=== PATIENT | female | born 1980 | race Caucasian/White ===

== ENCOUNTER 2016-09-30 19:50 | Emergency (ER) | payer BC, OTHER ==
[2016-09-30] MEDS ORDERED: HYOSCYAMINE SULFATE ODT 0.125 MG TAB.SUBL SL ONE (20:04)
[2016-09-30] MEDS ORDERED: ONDANSETRON HCL IV 4 MG/2 ML VIAL IVP ONE ×2 (20:04→22:05)
--- NOTE | 2016-09-30 20:09 | Emergency Department Record ---
History of Present Illness - General Chief complaint: Vomiting Stated complaint: VOMITING Time Seen by Provider: 09/30/16 20:04 Source: Patient Mode of Arrival: Ambulatory Limitations: No limitations - History of Present Illness Initial comments: 36 yo female presents to ED with a CC of nausea, vomiting, and loose stools that began approximately 4 hours ago. Patient denies health problems other than asthma, denies fevers, chills, or recent ill contacts. Patient does report abdominal pain to the epigastric region. MD complaint: Abdominal pain, Diarrhea, Nausea, Vomiting Onset/Timin -: Hour(s) Description of Vomiting: Bilious, Food contents Description of Diarrhea: Water Associated Abdominal Pain: Yes Location: Epigastric Severity: Mild Severity scale (1-10): 4 Quality: Aching, Sharp Consistency: Intermittent Improves with: None Worsens with: Vomiting Associated Symptoms: Denies other symptoms - Related Data Home Medications Medication Instructions Recorded Confirmed Last Taken Albuterol Sulfate [Proair Hfa] 1 puff INH Q4HR 11/02/14 09/30/16 09/30/16 Escitalopram Oxalate [Lexapro] 10 mg PO DAILY 11/02/14 09/30/16 09/30/16 Budesonide/Formoterol Fumarate 10.2 gm IH ASDIR 04/21/15 09/30/16 09/30/16 [Symbicort 160-4.5 Mcg Inhaler] Hydrocodone/Acetaminophen [[place] 0.5 each PO ASDIR tab 05/07/16 09/30/16 5mg/325mg] Previous Rx's Medication Instructions Recorded Albuterol Sulfate 0.083% [Neb] 3 ml NEB .EVERY 4-6 HOURS PRN #60 03/19/16 ml Levalbuterol HCl (1.25MG/3Ml) 1.25 mg IH Q8H #60 neb 03/19/16 [Xopenex (1.25MG/3Ml)] Hyoscyamine Sulfate [Levsin-Sl] 0.25 mg SL Q8H PRN #15 tab.subl 09/30/16 Ondansetron [Zofran Odt] 4 mg PO Q4H PRN #20 tab.rapdis 09/30/16 Allergies Allergy/AdvReac Type Severity Reaction Status Date / Time Penicillins Allergy Unknown PT UNSURE Verified 09/30/16 19:53 OF REACTION doxycycline AdvReac Intermediate VOMITING Verified 09/30/16 19:53 Travel Screening - Travel/Exposure Within Last 30 Days Have you traveled within the last 30 days?: No - Travel/Exposure Within Last Year Have you traveled outside the [place] in the last year?: No - Additonal Travel Details Have you been exposed to anyone with a communicable illness?: No - Travel Symptoms Symptom Screening: None Review of Systems Constitutional: Denies: Chills, Fever, Malaise, Night sweats Eyes: Denies: Eye discharge, Eye pain ENT: Denies: Congestion, Ear pain, Epistaxis Respiratory: Denies: Cough, Dyspnea Cardiovascular: Denies: Chest pain, Dyspnea on exertion, Palpitations, Paroxysmal nocturnal dyspnea Endocrine: Denies: Fatigue, Heat or cold intolerance Gastrointestinal: Reports: Abdominal pain, Diarrhea, Nausea, Vomiting Genitourinary: Denies: Dysuria, Frequency, Hematuria, Incontinence Musculoskeletal: Denies: Arthralgia, Back pain, Gout, Joint swelling Skin: Denies: Bruising, Change in color, Change in hair/nails Neurological: Denies: Abnormal gait, Confusion, Headache, Seizure Psychiatric: Denies: Anxiety Hematological/Lymphatic: Denies: Anemia, Blood Clots Past Medical History - SOCIAL HISTORY Smoking Status: Heavy tobacco smoker (>10/day) Alcohol Use: None Drug Use: None - RESPIRATORY Hx Respiratory Disorders: Yes Hx Asthma: Yes (in ER alot for asthma last visit 05-07) Hx Bronchitis: Yes Hx COPD: Yes Hx Dyspnea: Yes Hx Pneumonia: Yes - CARDIOVASCULAR Hx Cardio Disorders: No - NEURO Hx Neuro Disorders: Yes Hx Headaches: Yes - GI Hx GI Disorders: Yes Hx Abdominal Pain: Yes Hx Nausea/Vomiting: Yes Comment:: diarrhea - Hx Genitourinary Disorders: No - ENDOCRINE Hx Endocrine Disorders: No Hx Diabetes: No Hx Thyroid Disease: Yes (hashimottos) - MUSCULOSKELETAL Hx Musculoskeletal Disorders: Yes - PSYCH Hx Psych Problems: Yes Hx Anxiety: Yes Hx Depression: Yes - HEMATOLOGY/ONCOLOGY Hx Hematology/Oncology Disorders: No Family Medical History Any Significant Family History?: No Hx Cancer: Mother Hx Heart Disease: Father Hx HTN: Father Physical Exam - General General Appearance: Alert, Oriented x3, Cooperative, Moderate distress Limitations: No limitations - Head Head exam: Atraumatic, Normocephalic, Normal inspection Head exam detail: negative: Abrasion, Contusion, Vasquez's sign, General tenderness, Hematoma, Laceration - Eye Eye exam: Normal appearance. negative: Conjunctival injection, Periorbital swelling, Periorbital tenderness, Scleral icterus - ENT Ear exam: negative: Auricular hematoma, Auricular trauma Nasal Exam: negative: Active bleeding, Discharge, Dried blood, Foreign body Mouth exam: negative: Drooling, Laceration, Muffled voice, Tongue elevation - Neck Neck exam: Normal inspection. negative: Meningismus, Tenderness - Respiratory Respiratory exam: Normal lung sounds bilaterally. negative: Rales, Respiratory distress, Rhonchi, Stridor, Wheezes - Cardiovascular Cardiovascular Exam: Normal rhythm, Normal heart sounds, Tachycardia - GI/Abdominal GI/Abdominal exam: Soft, Tenderness, Other (mild, diffuse TTP on examination, greastest at the epigastric region on examination, no rebound, guarding, or peritoneal signs on exam.). negative: Rebound, Rigid - Rectal Rectal exam: Deferred - exam: Deferred - Extremities Extremities exam: Normal inspection. negative: Calf tenderness, Pedal edema, Tenderness - Back Back exam: Denies: CVA tenderness (R), CVA tenderness (L) - Neurological Neurological exam: Alert, Normal gait, Oriented X3 - Psychiatric Psychiatric exam: Normal affect, Normal mood - Skin Skin exam: Normal color. negative: Abrasion Type of lesion: negative: abrasion Course Vital Signs 09/30/16 19:53 Temperature 98.4 F Pulse Rate 127 H Respiratory 20 Rate Blood Pressure 114/72 Pulse Ox 98 - Reevaluation(s) Reevaluation #1: 09/30/16 20:59 Labs reviewed, WBC 17.9, left shift 86% neutrophils. Labs are otherwise grossly unremarkable for an acute process. Reevaluation #2: 09/30/16 21:26 UA reviewed and appears negative for infection. 2nd liter is infusing. Reevaluation #3: 09/30/16 22:03 Patient reassessed, repeat abdominal examination is benign, no pain with palpation, no rebound and no peritoneal signs. CT imaging is not felt to be warranted at this time given her abdominal examination, likely secondary to her repeated episodes of vomiting. Patient was updated on all results, and reports that she is feeling much better. Patient appears stable for discharge at this time. Medical Decision Making - Lab Data Result diagrams: 09/30/16 20:12 09/30/16 20:12 Disposition Disposition: Discharge Clinical Impression: Nausea & vomiting Qualifiers: Vomiting type: unspecified Vomiting Intractability: non-intractable Qualified Code(s): R11.2 - Nausea with vomiting, unspecified Disposition: Home, Self-Care Condition: (2) Stable Instructions: Acute Nausea and Vomiting (ED) Additional Instructions: Return to ED if your symptoms worsen or if you have any concerns. Follow-up with your family doctor in 3-5 days. Zofran and Levsin as directed. Prescriptions: Hyoscyamine Sulfate [Levsin-Sl] 0.25 mg SL Q8H PRN #15 tab.subl PRN Reason: Abdominal Pain Ondansetron [Zofran Odt] 4 mg PO Q4H PRN #20 tab.rapdis PRN Reason: Nausea/Vomiting Forms: Patient Portal Access Time of Disposition: 22:06
[2016-09-30] MEDS ORDERED: 0.9 % SODIUM CHLORIDE 1000ML 1,000 ML IV SCH ×2 (20:15→21:15)
[2016-09-30 20:19] LABS: HEMATOCRIT 42.3 % (35.0-47.0); HEMOGLOBIN 14.4 gm/dl (11.6-16.0); MEAN CELL VOLUME 93.6 fl (81-97); MEAN CORPUSCULAR HEMOGLOBIN 31.9 pg (27-33); MEAN PLATELET VOLUME 10.5 fl (7.4-10.4); PLATELET COUNT 371 K/uL (130-400); RED BLOOD COUNT 4.52 M/uL (3.80-5.40); RED CELL DISTRIBUTION WIDTH 13.4 % (11.5-14.5); WHITE BLOOD COUNT W/O DIFF 17.9 K/uL (4.2-12.2)
[2016-09-30 20:24] LABS: PLATELET ESTIMATE NORMAL (NORMAL)
[2016-09-30 20:28] LABS: ALB/GLOB RATIO 1.4 (1.1-1.8); ALBUMIN 4.7 gm/dL (3.5-5.0); ALKALINE PHOSPHATASE 94 U/L (38-126); ALT/SGPT 36 U/L (9-52); ANION GAP 15.8 (7-16); AST/SGOT 24 U/L (14-36); BILIRUBIN,TOTAL 0.76 mg/dL (0.2-1.3); BLOOD UREA NITROGEN 15 mg/dL (7-17); CARBON DIOXIDE 22.2 mmol/L (22-30); CREATININE 0.7 mg/dL (0.52-1.04); EST GLOMERULAR FILTRATION RATE > 60 ml/min; GLUCOSE,RANDOM 132 mg/dL (70-110); TOTAL PROTEIN 8.1 gm/dL (6.3-8.2)
[2016-09-30 21:21] LABS: URINE APPEARANCE CLEAR; URINE BILIRUBIN SMALL (NEGATIVE); URINE BLOOD NEGATIVE (NEGATIVE); URINE COLOR YELLOW; URINE GLUCOSE (UA) NEGATIVE (NEGATIVE); URINE KETONE 15 mg/dL (NEGATIVE); URINE LEUKOCYTE ESTERASE NEGATIVE (NEGATIVE); URINE NITRITE NEGATIVE (NEGATIVE); URINE PROTEIN NEGATIVE (NEGATIVE); URINE UROBILINOGEN 0.2 E.U./dL (0.20 - 1.00)
[2016-09-30 21:24] LABS: HCG,QUALITATIVE URINE NEGATIVE (NEGATIVE)
== END 2016-09-30 22:24 | disposition home or self-care (01) ==
LOC: ER 19:50
DX: R11.2 Nausea with vomiting, unspecified (principal); R19.7 Diarrhea, unspecified; R10.13 Epigastric pain
CPT/HCPCS: 99284 ×2; 96376; 96374; 96361; 83690; 80053; 81003; 81025; 85027; J1980; J2405; J7030

== ENCOUNTER 2019-06-17 09:53 | Emergency (ER) | payer OTHER ==
[2019-06-17] MEDS ORDERED: IBUPROFEN 600 MG TABLET PO ONE (10:13)
--- NOTE | 2019-06-17 10:14 | Emergency Department Record ---
History of Present Illness - General Chief complaint: Flu Like Symptoms Stated complaint: FLU SYMPTOMS Time Seen by Provider: 06/17/19 10:00 Source: Patient Mode of Arrival: Ambulatory - History of Present Illness Initial comments: patient has sore throat and body aches and one loose stool and PMH of asthma and her 10 year old daughter diagnosed with flu couple days ago. Patient denies vomiting and she didn't get the flu shot this year Onset/Timin -: Days(s) Location: Generalized Severity scale (1-10): 6 Quality: Aching Consistency: Constant Improves with: None Worsens with: None Associated Symptoms: Headaches, Other - Related Data Home Medications Medication Instructions Recorded Confirmed Last Taken Tramadol HCl 50 mg PO DAILY 06/17/19 06/17/19 Unknown Previous Rx's Medication Instructions Recorded Albuterol Sulfate 0.083% [Neb] 3 ml NEB .EVERY 4-6 HOURS PRN #60 03/19/16 [Albuterol Sulfate] ml Oseltamivir Phosphate [Tamiflu] 75 mg PO BID #10 capsule 06/17/19 Allergies Allergy/AdvReac Type Severity Reaction Status Date / Time Penicillins Allergy Unknown PT UNSURE Verified 09/30/16 19:53 OF REACTION doxycycline AdvReac Intermediate VOMITING Verified 09/30/16 19:53 Travel Screening - Travel/Exposure Within Last 30 Days Have you traveled within the last 30 days?: No Past Medical History - SOCIAL HISTORY Smoking Status: Heavy tobacco smoker (>10/day) - RESPIRATORY Hx Respiratory Disorders: Yes Hx Asthma: Yes (in ER alot for asthma last visit 05-07) Hx Bronchitis: Yes Hx COPD: Yes Hx Dyspnea: Yes Hx Pneumonia: Yes - CARDIOVASCULAR Hx Cardio Disorders: No - NEURO Hx Neuro Disorders: Yes Hx Headaches: Yes - GI Hx GI Disorders: Yes Hx Abdominal Pain: Yes Hx Nausea/Vomiting: Yes Comment:: diarrhea - Hx Genitourinary Disorders: No - ENDOCRINE Hx Endocrine Disorders: No Hx Diabetes: No Hx Thyroid Disease: Yes (hashimottos) - MUSCULOSKELETAL Hx Musculoskeletal Disorders: Yes - PSYCH Hx Psych Problems: Yes Hx Anxiety: Yes Hx Depression: Yes - HEMATOLOGY/ONCOLOGY Hx Hematology/Oncology Disorders: No Family Medical History Any Significant Family History?: Yes Hx Cancer: Mother Hx Heart Disease: Father Hx HTN: Father Physical Exam - General General Appearance: Alert, Oriented x3, Cooperative, No acute distress - Head Head exam: Normal inspection - Eye Eye exam: Normal appearance, PERRL Pupils: Normal accommodation - ENT ENT exam: Normal exam, Mucous membranes moist, Normal external ear exam, Normal orophraynx, TM's normal bilaterally Ear exam: Normal external inspection. negative: External canal tenderness Nasal Exam: Normal inspection. negative: Discharge, Sinus tenderness Mouth exam: Normal external inspection, Tongue normal Teeth exam: Normal inspection. negative: Dental caries Throat exam: Normal inspection. negative: Tonsillar erythema, Tonsillar exudate - Neck Neck exam: Normal inspection, Full ROM. negative: Tenderness - Respiratory Respiratory exam: Normal lung sounds bilaterally. negative: Respiratory distress - Cardiovascular Cardiovascular Exam: Regular rate, Normal rhythm, Normal heart sounds - GI/Abdominal GI/Abdominal exam: Soft, Normal bowel sounds. negative: Tenderness - Rectal Rectal exam: Deferred - exam: Deferred - Extremities Extremities exam: Normal inspection, Full ROM, Normal capillary refill. negative: Tenderness - Back Back exam: Reports: Normal inspection, Full ROM. Denies: Muscle spasm, Rash noted, Tenderness - Neurological Neurological exam: Alert, Normal gait, Oriented X3, Reflexes normal - Psychiatric Psychiatric exam: Normal affect, Normal mood - Skin Skin exam: Dry, Intact, Normal color, Warm Course Vital Signs 06/17/19 10:01 Temperature 99.1 F Pulse Rate 94 H Respiratory 20 Rate Blood Pressure 135/85 Pulse Ox 98 Medical Decision Making - Data Complexity MDM Data: Labs Ordered and/or Reviewed (strep negative and flu negative but symptoms are consisitent with the flu) Disposition Clinical Impression: Influenza Disposition: Home, Self-Care Condition: (1) Good Instructions: Influenza (ED) Additional Instructions: follow up with family Dr in 2-3 days Prescriptions: Oseltamivir Phosphate [Tamiflu] 75 mg PO BID #10 capsule Forms: Patient Portal Access Time of Disposition: 10:41 Quality - Quality Measures Quality Measures: N/A - Blood Pressure Screening Does Patient Have Any of the Following: No Blood Pressure Classification: Pre-Hypertensive BP Reading Systolic Measurement: 135 Diastolic Measurement: 85 Screening for High Blood Pressure: < Pre-Hypertensive BP, F/U Documented > [G8950] Pre-Hypertensive Follow-up Interventions: Referral to alternative/primary care provider.
[2019-06-17 10:17] LABS: STREP A SCREEN NEGATIVE (NEGATIVE)
[2019-06-17 10:33] LABS: INFLUENZA A NEGATIVE (NEGATIVE); INFLUENZA B NEGATIVE (NEGATIVE)
== END 2019-06-17 10:51 | disposition home or self-care (01) ==
LOC: ER 09:53
DX: J11.1 Influenza due to unidentified influenza virus with other respiratory manifestations (principal); F17.210 Nicotine dependence, cigarettes, uncomplicated
CPT/HCPCS: 87400; 87880; 99283

== ENCOUNTER 2019-07-04 12:43 | Emergency (ER) | payer OTHER ==
--- NOTE | 2019-07-04 14:09 | Emergency Department Record ---
History of Present Illness - General Chief Complaint: Ankle/Foot Injury Stated Complaint: lt big toe pain/gout Time Seen by Provider: 07/04/19 13:49 Mode of Arrival: Ambulatory - History of Present Illness Onset/Timin -: Days(s) Severity: Severe Severity scale (1-10): 10 Improves With: Nothing Worsens With: Movement, Weight bearing - Related Data Previous Rx's Medication Instructions Recorded Albuterol Sulfate 0.083% [Neb] 3 ml NEB .EVERY 4-6 HOURS PRN #60 03/19/16 [Albuterol Sulfate] ml Allergies Allergy/AdvReac Type Severity Reaction Status Date / Time Penicillins Allergy Unknown PT UNSURE Verified 07/04/19 13:43 OF REACTION doxycycline AdvReac Intermediate VOMITING Verified 07/04/19 13:43 Travel Screening - Travel/Exposure Within Last 30 Days Have you traveled within the last 30 days?: No Past Medical History - SOCIAL HISTORY Smoking Status: Heavy tobacco smoker (>10/day) Alcohol Use: None Drug Use: None - RESPIRATORY Hx Respiratory Disorders: Yes Hx Asthma: Yes (in ER alot for asthma last visit 05-07) Hx Bronchitis: Yes Hx COPD: Yes Hx Dyspnea: Yes Hx Pneumonia: Yes - CARDIOVASCULAR Hx Cardio Disorders: No - NEURO Hx Neuro Disorders: Yes Hx Headaches: Yes - GI Hx GI Disorders: Yes Hx Abdominal Pain: Yes Hx Nausea/Vomiting: Yes Comment:: diarrhea - Hx Genitourinary Disorders: No - ENDOCRINE Hx Endocrine Disorders: No Hx Diabetes: No Hx Thyroid Disease: Yes (hashimottos) - MUSCULOSKELETAL Hx Musculoskeletal Disorders: Yes - PSYCH Hx Psych Problems: Yes Hx Anxiety: Yes Hx Depression: Yes - HEMATOLOGY/ONCOLOGY Hx Hematology/Oncology Disorders: No Family Medical History Any Significant Family History?: Yes Hx Cancer: Mother Hx Heart Disease: Father Hx HTN: Father Course Vital Signs 07/04/19 13:39 Temperature 98.1 F Pulse Rate 72 Respiratory 20 Rate Blood Pressure 124/90 Pulse Ox 100 Disposition Quality - Blood Pressure Screening Does Patient Have Any of the Following: No Blood Pressure Classification: Hypertensive Reading Systolic Measurement: 124 Diastolic Measurement: 90
== END 2019-07-04 14:23 | disposition left against medical advice (07) ==
LOC: ER 12:43
DX: Z53.29 Procedure and treatment not carried out because of patient's decision for other reasons (principal)

== ENCOUNTER 2019-07-04 19:07 | Emergency (ER) | payer OTHER ==
--- NOTE | 2019-07-04 19:32 | Emergency Department Record ---
History of Present Illness - General Chief complaint: Extremity Problem Stated complaint: LT BIG TOE PAIN Time Seen by Provider: 07/04/19 19:10 Source: Patient Mode of Arrival: Ambulatory Limitations: No limitations - History of Present Illness Initial comments: The patient is here due to L foot pain for 2 days. The pain is over the L 1st MCP joint and it has been getting progressively worse over the last 2 days. The patient denies any injury or trauma to the foot. She also denies any hx of similar issues and no hx of gout. MD Complaint: Extremity pain Onset/Timin -: Days(s) Location: Left, Other History of Same: No Severity scale (1-10): 8 Quality: Aching, Sharp Consistency: Constant Improves with: Immobilization Worsens with: Exertion, Palpation, Walking, Weight bearing Associated Symptoms: Denies other symptoms - Related Data Previous Rx's Medication Instructions Recorded Albuterol Sulfate 0.083% [Neb] 3 ml NEB .EVERY 4-6 HOURS PRN #60 03/19/16 [Albuterol Sulfate] ml Prednisone [Prednisone 20Mg] 40 mg PO DAILY #10 tab 07/04/19 Allergies Allergy/AdvReac Type Severity Reaction Status Date / Time Penicillins Allergy Unknown PT UNSURE Verified 07/04/19 13:43 OF REACTION doxycycline AdvReac Intermediate VOMITING Verified 07/04/19 13:43 Travel Screening - Travel/Exposure Within Last 30 Days Have you traveled within the last 30 days?: No Review of Systems Constitutional: Denies: Chills, Fever Eyes: Denies: Eye discharge ENT: Denies: Congestion Respiratory: Denies: Cough, Dyspnea Past Medical History - SOCIAL HISTORY Smoking Status: Heavy tobacco smoker (>10/day) - RESPIRATORY Hx Respiratory Disorders: Yes Hx Asthma: Yes (in ER alot for asthma last visit 05-07) Hx Bronchitis: Yes Hx COPD: Yes Hx Dyspnea: Yes Hx Pneumonia: Yes - CARDIOVASCULAR Hx Cardio Disorders: No - NEURO Hx Neuro Disorders: Yes Hx Headaches: Yes - GI Hx GI Disorders: Yes Hx Abdominal Pain: Yes Hx Nausea/Vomiting: Yes Comment:: diarrhea - Hx Genitourinary Disorders: No - ENDOCRINE Hx Endocrine Disorders: No Hx Diabetes: No Hx Thyroid Disease: Yes (hashimottos) - MUSCULOSKELETAL Hx Musculoskeletal Disorders: Yes - PSYCH Hx Psych Problems: Yes Hx Anxiety: Yes Hx Depression: Yes - HEMATOLOGY/ONCOLOGY Hx Hematology/Oncology Disorders: No Family Medical History Any Significant Family History?: Yes Hx Cancer: Mother Hx Heart Disease: Father Hx HTN: Father Physical Exam - General General Appearance: Alert, Oriented x3, Cooperative, No acute distress - Head Head exam: Atraumatic - Eye Eye exam: Normal appearance - Extremities Extremities exam: negative: Normal inspection (There is very slight erythema to the medial L 1st MCP joint area with significant pain to palpation. There is also full ROM but with significant pain to the L 1st MCP joint. There is no dorsal or plantar surface swelling, erythema or warmth.) Image of Feet: 1 - Area of pain and tenderness. - Neurological Neurological exam: Alert. negative: Motor sensory deficit - Skin Skin exam: negative: Rash Course Vital Signs 07/04/19 19:12 Temperature 98.5 F Pulse Rate [ 80 Pulse Ox Probe] Respiratory 20 Rate Blood Pressure 125/67 [Left Arm] Pulse Ox 96 - Reevaluation(s) Reevaluation #1: I did discuss the xray and lab results with the patient and the most likely cause for the pain which I do believe is gout. She is to continue the Steroids and to see her doctor next week for recheck. 07/04/19 20:10 Medical Decision Making - Lab Data Result diagrams: 07/04/19 19:28 07/04/19 19:28 Disposition Disposition: Discharge Clinical Impression: Foot pain, left Disposition: Home, Self-Care Condition: (2) Stable Instructions: Low Purine Diet (ED), Arthralgia (ED) Additional Instructions: Please use Tylenol or Motrin for pain and continue the Prednisone tomorrow. Please ice and elevate the L foot when possible and wear the post op shoe for 5 days. Please see your doctor next week for recheck. Prescriptions: Prednisone [Prednisone 20Mg] 40 mg PO DAILY #10 tab Forms: Patient Portal Access Time of Disposition: 20:10 Quality - Quality Measures Quality Measures: N/A - Blood Pressure Screening View Details: Yes Does Patient Have Any of the Following: No Blood Pressure Classification: Pre-Hypertensive BP Reading Systolic Measurement: 125 Diastolic Measurement: 67 Screening for High Blood Pressure: < Pre-Hypertensive BP, F/U Documented > [G8950] Pre-Hypertensive Follow-up Interventions: Referral to alternative/primary care provider.
[2019-07-04 19:35] LABS: ABSOLUTE NEUTROPHIL COUNT 6.19; BASO % 0.3 % (0-6); EOS % 4.1 % (0-6); GRAN % 55.1 % (47-80); HEMATOCRIT 39.4 % (35.0-47.0); HEMOGLOBIN 12.8 gm/dl (11.6-16.0); LYMPH % 32.7 % (16-45); MEAN CELL VOLUME 96.3 fl (81-97); MEAN CORPUSCULAR HEMOGLOBIN 31.3 pg (27-33); MEAN CORPUSCULAR HGB CONC 32.5 g/dl (32-36); MEAN PLATELET VOLUME 10.5 fl (7.4-10.4); MONO % 7.8 % (0-9); PLATELET COUNT 347 K/uL (130-400); RED BLOOD COUNT 4.09 M/uL (3.80-5.40); WHITE BLOOD COUNT W/O DIFF 11.2 K/uL (4.2-12.2)
[2019-07-04 19:46] LABS: BLOOD UREA NITROGEN 19 mg/dL (6-20); CREATININE 0.8 mg/dL (0.5-0.9); EST GLOMERULAR FILTRATION RATE > 60 mL/min
[2019-07-04 19:49] LABS: GLUCOSE,RANDOM 101 mg/dL (74-109)
[2019-07-04 19:52] LABS: C-REACTIVE PROTEIN 0.16 mg/dL (<0.5)
[2019-07-04] MEDS: METHYLPREDNISOLONE PF 125MG/VIAL IM ONE (19:56)
--- NOTE | 2019-07-04 20:05 | RADIOLOGY REPORT ---
EXAMINATION: FOOT, LEFT 3 VIEWS EXAM DATE: 07/04/2019 7:44 PM TECHNIQUE: 3 views of the left foot. INDICATION: foot pain L 1st MCP COMPARISON: None ENCOUNTER: Initial FINDINGS: No evidence of acute fracture or dislocation. The joint spaces are preserved. Bone mineralization is normal. IMPRESSION: Unremarkable examination. Dictated by: River Huizar MD on 07/04/2019 8:01 PM. .
== END 2019-07-04 20:15 | disposition home or self-care (01) ==
LOC: ER 19:07
DX: M79.672 Pain in left foot (principal); F17.210 Nicotine dependence, cigarettes, uncomplicated
CPT/HCPCS: 80048; 84550; 85025; 86140; 96372; 99284; J2930